=== PATIENT | female | born 1995 | race Caucasian/White ===

== ENCOUNTER 2017-05-19 17:54 | Emergency (ER) | payer SELFPAY ==
[2017-05-19] MEDS ORDERED: KETOROLAC 15 MG/1 ML VIAL IVP ONE (18:11)
[2017-05-19] MEDS ORDERED: NORMAL SALINE 10 ML SYRINGE FLUSH IVP PRN (18:11)
[2017-05-19] MEDS ORDERED: Sodium Chloride 0.9% 1,000 ML PRIMARY IV ONE (18:11)
[2017-05-19 18:18] VITALS: RESP 20; TEMP 97.6
[2017-05-19 18:44] LABS: BASOPHILS # (AUTO) 0.09 10*3/UL; BASOPHILS % (AUTO) 0.8 % (0-1); EOSINOPHILS # (AUTO) 0.23 10*3/UL; HEMATOCRIT 40.1 % (37.0-47.0); HEMOGLOBIN 13.6 g/dL (12.0-16.0); MEAN CORPUSCULAR HEMOGLOBIN 28.9 PG (27-31); MEAN CORPUSCULAR HGB CONC 33.9 g/dL (33-37); MEAN CORPUSCULAR VOLUME 85.1 FL (81-99); MEAN PLATELET VOLUME 9.7 FL (7.4-12.2); MONOCYTES # (AUTO) 0.76 10*3/UL (0.3-0.8); MONOCYTES % (AUTO) 6.7 % (5-15); NEUTROPHILS % (AUTO) 60.3 % (50-80); RED BLOOD COUNT 4.71 10^6/uL (4.20-5.40)
[2017-05-19 18:45] LABS: PLATELET MORPHOLOGY COMMENT NORMAL MORPHOLOGY (NORM); RBC MORPHOLOGY COMMENT NORMAL MORPHOLOGY (NORM); WBC MORPHOLOGY COMMENT NORMAL MORPHOLOGY (NORM)
[2017-05-19 18:49] LABS: BLOOD UREA NITROGEN 15 mg/dL (7-22); BUN/CREATININE RATIO 21.42 (6-20); C-REACTIVE PROTEIN 3.2 mg/dL (0.0-0.9); CALCIUM 9.8 mg/dL (8.7-10.7); EST GLOMERULAR FILTRATION > 60 (>60 ml/min/1.73m(2)); SERUM ALBUMIN 4.4 g/dL (3.5-4.8)
--- NOTE | 2017-05-19 19:19 | PDOC ---
General Adult HPI - General Chief Complaint: General Medical Stated Complaint: NECK PAIN WITH HANDS GOING NUMB Date Seen by Provider: 05/19/17 Time Seen by Provider: 18:05 Source: POSITIVE: Patient Exam Limitations: POSITIVE: No limitations Nurse's Notes Reviewed & Considered: Yes - History of Present Illness Initial Comment: The patient is a 21-year-old female who presents to the emergency department with complaints of neck pain and fever. She states that since this morning she has developed pain at the base of her head and upper neck. She reports that her hands are intermittently going numb. In addition she has had some fever and chills. She also has some degree of mid lower back pain. She states that approximately a year ago she had developed pneumonia and subsequently developed a staph infection in her bloodstream and in her spine. She was treated with a 4 month course of antibiotics for this staph infection. She never did require surgery on her spine. She denies any recent injury. She denies any numbness or weakness in her legs. She has had some burning with urination as well as some cloudy urine for the past couple of days. She reports that she was seen at the [facility] and [place]. They told her that she did have a UTI however they recommended that she come to the emergency room to have blood cultures and other blood work done. She denies any nausea vomiting, abdominal pain. She does report that she has had some increased sinus congestion as well as pressure across the maxillary sinus region. Have you received a tetanus shot in the past 10 years?: Unknown - Patient Home Medications Home Medications: Home Medications Cefdinir Cap [Omnicef Cap] 300 mg PO BID #20 capsule 05/19/17 Medroxyprogesterone Acet [Depo-Provera] 05/19/17 - Patient Allergies Allergies/Adverse Reactions: Allergies Allergy/AdvReac Type Severity Reaction Status Date / Time Penicillins Allergy Intermediate HIVES Verified 05/19/17 18:06 hydrocodone [Hydrocodone] Allergy Mild HIVES Verified 05/19/17 18:06 latex AdvReac ITCHING Verified 05/19/17 18:06 BEES Allergy Intermediate ANAPHLAXIS Uncoded 05/19/17 18:06 Past Medical History - heen HEENT History: Denies History Cardiovascular History: Other (please comment) Additional Cardiovasular History: Tachycardia, patient has had this on and off and finished a holter monitor test but hasn't heard any results yet. Respiratory History: Denies History Gastrointestinal History: GERD Genitourinary History: Denies History Endocrine History: Denies History Musculoskeletal History: Denies History Prosthesis or Implant: No Neurological History: Migraines Blood Disorders: Anemia Psychiatric History: Depression, Other (please comment) Additional Psychiatric History: Past Suicide attempts History of Sexually Transmitted Diseases: No Female Reproductive History: Denies History Obstetrical History: Denies History Cancer History: Denies History In Past Year Been Physically Harmed or Verbally Threatened: No History of MDRO: No History of Other Communicable Diseases: No Tobacco Use: Current Every Day Smoker Alcohol Use: None Substance Use Type: Marijuana, Methamphetamines, Other (please comment) Previous Surgical History: Yes Type / Date of Surgery: Tonsilectomy Anesthesia Reactions: No Malignant Hyperthermia: No Significant Family History: COPD Past Medical History Reviewed: Reviewed - No Changes ROS - Limitations ROS Limitations: No Limitations Constitution: REPORTS: Chills, Fever Cardiovascular: REPORTS: Denies Cardiac Symptoms Respiratory: REPORTS: Denies Resp Symptoms Neurological: REPORTS: Numbness (Intermittently in both hands). DENIES: Headache Gastrointestinal: REPORTS: Denies GI Symptoms Musculoskeletal: REPORTS: Back Pain, Neck Pain Genitourinary: REPORTS: Dysuria. DENIES: Hematuria, Difficulty Urinating Eyes: REPORTS: Denies Symptoms ENT: REPORTS: Denies Symptoms Skin: DENIES: Rash General Adult Exam - General Appearance General Appearance: POSITIVE: Alert, Cooperative, No Acute Distress - HEENT HEENT: POSITIVE: Head Inspection Nml, Eyes Inspection Nml, Ears Inspection Nml, Nose Inspection Nml - Neck Neck: POSITIVE: Other (There is no visible swelling or erythema to her neck, she does have tenderness to the upper neck posteriorly). NEGATIVE: Lymphadenopathy - Respiratory Respiratory: POSITIVE: No Respiratory Distress, Breath Sounds Normal - Cardiovascular Cardiovascular: POSITIVE: Regular Rate & Rhythm, No Murmur Peripheral Pulses: Dorsalis-pedis (R): 2+, Dorsalis-pedis (L): 2+ - Abdomen Abdomen: Soft: (All Quadrants), Denies Tenderness: (All Quadrants), No Distention: (All Quadrants) - Back Back: POSITIVE: Normal Inspection, Other (She does have some mild tenderness to the upper lumbar spine/lower thoracic spine, no swelling or erythema) - Skin Skin: POSITIVE: Normal Color, No Rash - Extremities Extremity: Normal ROM: (All Extremities), Normal Inspection: (All Extremities) - Neurological / Psychological Neurological: POSITIVE: Oriented X3, Motor Normal, Sensation Normal General Adult Progress - Results Reviewed by me Xrays/CTs/US Reviewed by me: Yes Discussed with Radiologist: Yes Radiology Findings: CT scan of the cervical spine with IV contrast reveals no evidence of abscess or any other acute abnormality in the spine. She does have thickening of the ethmoid sinuses and a maxillary retention cyst per radiologist. Lab Results Reviewed: Yes Lab Results:: Laboratory Results 05/19/17 05/19/17 Range/Units 18:36 19:30 WBC 11.29 H (4.8-10.8) 10^3/uL RBC 4.71 (4.20-5.40) 10^6/uL Hgb 13.6 (12.0-16.0) g/dL Hct 40.1 (37.0-47.0) % MCV 85.1 (81-99) FL MCH 28.9 (27-31) PG MCHC 33.9 (33-37) g/dL RDW Std Deviation 43.5 (39-50) fL RDW Coeff of Pj 14.3 (11.5-14.5) % Plt Count 266 (140-350) 10*3/uL MPV 9.7 (7.4-12.2) FL Immature Gran % (Auto) 0.1 (0-5) % Neut % (Auto) 60.3 (50-80) % Lymph % (Auto) 30.1 (10-50) % [place] % (Auto) 6.7 (5-15) % Eos % (Auto) 2.0 (0-8) % Baso % (Auto) 0.8 (0-1) % Immature Gran # (Auto) 0.01 10*3/UL Neut # (Auto) 6.80 10*3/UL Lymph # (Auto) 3.40 10*3/uL [place] # (Auto) 0.76 (0.3-0.8) 10*3/UL Eos # (Auto) 0.23 10*3/UL Baso # (Auto) 0.09 10*3/UL WBC Morphology Comment Normal morphology (NORM) Plt Morphology Comment Normal morphology (NORM) RBC Morph Comment Normal morphology (NORM) Sodium 139 (135-145) meq/L Potassium 4.4 (3.8-5.2) meq/L Chloride 104 (98-112) meq/L Carbon Dioxide 24 (23-33) meq/L Anion Gap 11 (5-20) BUN 15 (7-22) mg/dL Creatinine 0.7 (0.50-1.20) mg/dL Estimated GFR > 60 (>60 ml/min/1.73m(2)) BUN/Creatinine Ratio 21.42 H (6-20) Glucose 88 (78-110) mg/dL Calculated Osmolality 287.0 (267-292) mOsm/kg Lactic Acid 0.9 (0.70-2.10) MMOL/L Calcium 9.8 (8.7-10.7) mg/dL Total Bilirubin 0.3 (0.3-1.2) mg/dL AST 35 (8-39) IU/L ALT 58 H (9-52) IU/L Alkaline Phosphatase 71 (38-126) IU/L C-Reactive Protein 3.2 H (0.0-0.9) mg/dL Total Protein 7.5 (6.1-8.0) g/dL Albumin 4.4 (3.5-4.8) g/dL Globulin 3.1 (2.50-4.10) g/dL Albumin/Globulin Ratio 1.40 (1.3-2.0) mg/g Serum HCG, Qual Negative Ur Collection Type Voided specimen Urine Color Yellow Urine Clarity Clear (CLEAR) Urine pH 5.5 (5.0-8.5) Ur Specific [place] 1.010 (1.005-1.030) U Specif Grav (Refrac) 1.010 Urine Protein Negative (NEG) mg/dl Urine Glucose (UA) Negative (NEG) mg/dL Urine Ketones Negative (NEG) Urine Occult Blood Negative (NEG) Urine Nitrate Negative (NEG) Urine Bilirubin Negative (NEG) Urine Urobilinogen 0.2 (0.2) EU/dL Ur Leukocyte Esterase Negative (NEG) Ur Culture Indicated? Culture not set Urine Opiates Screen Negative (NEG) Ur Buprenorphine Negative (NEG) Ur Oxycodone Screen Negative (NEG) Urine Methadone Screen Negative (NEG) Ur Propoxyphene Screen Negative (NEG) Barbiturate Screen Negative (NEG) U Tricyclic Antidepress Negative (NEG) Phencyclidine Screen Negative (NEG) Amphetamines Screen Negative (NEG) U Methamphetamines Scrn Negative (NEG) Benzodiazepines Screen Negative (NEG) Cocaine Screen Negative (NEG) U Marijuana (THC) Screen Negative (NEG) - Patient's Progress MDM / ED Course: An IV was established and blood cultures and lactate were drawn with initial IV start. The patient did receive IV fluids as well as Toradol 15 mg IV. Her blood work reveals a mildly elevated white blood cell count and mildly elevated CRP. Urinalysis is normal. CT scan of her cervical spine with IV contrast shows no obvious spinal abnormality. She does have ethmoid sinus thickening per radiologist. Findings were discussed with the patient. She does have a history of previous bacteremia staph infection which is somewhat concerning. She does not appear to be clinically septic. It is possible that her mildly elevated white blood cell count and CRP could be from sinusitis. Her symptoms are consistent with this and there are CT findings consistent with this as well. Decision was made to treat this and she was given Rocephin 1 g IV and will be started on Omnicef 300 mg twice a day for 10 days. She will continue ibuprofen as needed for pain. She is advised return to the emergency room if any worsening or change in symptoms. Close follow-up with her primary care provider was advised in the next 2-3 days. Blood cultures are pending. If she has continued neck symptoms she may require further evaluation with MRI. - Consult Counseled: POSITIVE: Patient, RE: Lab Results, RE: Radiology Results, RE: DX, RE : Need for F/U Patient Care Time - Estimated PCT Patient Care Time (In Minutes): 35 Vital Signs - Recent Vital Signs Vital Signs: Vital Signs (Last 8 hours) Temp Pulse Resp BP Pulse Ox 05/19/17 18:03 97.6 F 110 H 20 107/73 98 - VS Reviewed Vital Signs Reviewed: Yes Discharge Clinical Impression: Sinusitis Discharge Disposition: Discharged to Home Condition: Stable Prescriptions / Orders: Cefdinir Cap [Omnicef Cap] 300 mg PO BID #20 capsule Patient Instructions Given at Discharge: Sinusitis (ED) Additional Instructions: Omnicef 300 mg twice a day for 10 days. Ibuprofen 600 mg every 6 hours as needed for pain or fever. Return to the emergency room if any worsening or change in symptoms. Recommend follow-up with primary care in 2-3 days. Follow Up With: NONE,NONE [Primary Care Provider] -
[2017-05-19 19:51] LABS: BILIRUBIN,URINE NEGATIVE (NEG); CLARITY,URINE CLEAR (CLEAR); COLOR,URINE YELLOW; GLUCOSE, URINE (UA) NEGATIVE (NEG); NITRATE,URINE NEGATIVE (NEG); OCCULT BLOOD,URINE NEGATIVE (NEG); PH,URINE 5.5 (5.0-8.5); PROTEIN,URINE NEGATIVE (NEG); UROBILINOGEN,URINE 0.2 EU/dL (0.2)
--- NOTE | 2017-05-19 19:52 | DI ---
HISTORY: Neck pain and hand numbness. COMPARISON: None. TECHNIQUE: Contiguous axial unenhanced images of the cervical spine were obtained from the foramen m agnum through T1. These were reformatted into sagittal and coronal planes. FINDINGS: The superior mediastinum is grossly unremarkable. There are scattered ill-defined subcentimeter nodular opacities in the right lung apex, that could re flect infection, or mass lesions. Recommend dedicated imaging. The thyroid gland, and visualized intracranial parenchyma appear grossly unremarkable. The salivary glands enhance normally. Dental amalgam causes beam hardening artifacts that limit the sensitivity of the exam. The paranasal sinuses demonstrate modest mucosal thickening. There is a mucous retention cyst in the left maxillary sinus. The visualized salivary glands appear grossly unremarkable. There are small cervical lymph nodes noted bilaterally. There is no cervical abscess. IMPRESSION: 1. No cervical abscess. Recommend correlation with MRI.
[2017-05-19 19:54] LABS: AMPHETAMINE SCREEN NEGATIVE (NEG); CANNABINOID SCREEN,URINE NEGATIVE (NEG); COCAINE SCREEN NEGATIVE (NEG); METHADONE URINE SCREEN NEGATIVE (NEG); METHAMPHETAMINES SCREEN,URINE NEGATIVE (NEG); OPIATE SCREEN,URINE NEGATIVE (NEG); URINE SAMPLE TYPE VOIDED SPECIMEN
[2017-05-19] MEDS ORDERED: cefTRIAXone Inj 1 GM in Sodium Chloride 0.9% 100 ML IV ONE (20:49)
== END 2017-05-19 21:45 | disposition home or self-care (01) ==
LOC: ER 17:54
DX: J01.90 Acute sinusitis, unspecified (principal); R50.9 Fever, unspecified; R20.0 Anesthesia of skin; R30.0 Dysuria; R09.81 Nasal congestion; M54.89 Other dorsalgia; M54.2 Cervicalgia
CPT/HCPCS: 36415; 72126; 80053; 80305; 81003; 83605; 84703; 85025; 86140; 87040; 96365; 96375; 99283 ×2; J0696; J1885; J7030; J7050